=== PATIENT | female | born 1995 | race Caucasian/White ===

== ENCOUNTER 2016-10-08 18:43 | Emergency (ER) | payer OTHER ==
[2016-10-08] MEDS ORDERED: Sodium Chloride 0.9% 5 ML Syringe FLUSH PRN (18:46)
[2016-10-08] MEDS ORDERED: Sodium Chloride 0.9% 1,000 ML IV ONE (19:00)
[2016-10-08] MEDS ORDERED: Ondansetron 4 MG/2 ML SDV ONE (19:04)
[2016-10-08] MEDS ORDERED: Ondansetron 4 MG/2 ML SDV IVPUSH ONE ×2 (19:05→20:27)
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
[2016-10-08] MEDS ORDERED: HYDROmorphone 1 MG/ML Syringe IV ONE (19:37)
[2016-10-08] MEDS ORDERED: HYDROmorphone 1 MG/ML Syringe ONE (19:37)
[2016-10-08 20:18] VITALS: BP 114/48
[2016-10-08] MEDS ORDERED: Ondansetron 4 MG Tab.DIS PO ONE (22:06)
[2016-10-08] MEDS ORDERED: Acetaminophen/HYDROcodone 325-5 MG Tab PO ONE (22:07)
== END 2016-10-08 23:00 | disposition home or self-care (01) ==
LOC: KA.ED 18:43
DX: S06.0X0A Concussion without loss of consciousness, initial encounter (principal); S12.601A Unspecified nondisplaced fracture of seventh cervical vertebra, initial encounter for closed fracture; V80.010A Animal-rider injured by fall from or being thrown from horse in noncollision accident, initial encounter; Z79.899 Other long term (current) drug therapy
CPT/HCPCS: 70450; 72125; 72128; 72131; 96361; 96374; 96375; 96376; 99284; J1170; J2405; J7030; A9270-GY